=== PATIENT | female | born 1975 | race African-American/Black ===

== ENCOUNTER 2023-01-13 17:14 | Emergency (ER) | payer OTHER ==
[~2023-01-13] VITALS: Ht 170.2 cm; Wt 100.0 kg
[2023-01-13 17:33] VITALS: BP 169/90; PULSE 83; RESP 18; O2SAT 99
[2023-01-13] MEDS ORDERED: METH-653 MT (18:16)
[2023-01-13 18:30] VITALS: TEMP 98.2
[2023-01-13] MEDS ORDERED: ACETAMINOPHEN 325MG TABLET PO ONE (18:30)
== END 2023-01-13 18:59 | disposition home or self-care (01) ==
LOC: ER 17:14
DX: M54.50 Low back pain, unspecified (principal)
CPT/HCPCS: 99283